=== PATIENT | male | born 1960 | race Caucasian/White ===

== ENCOUNTER 2016-11-14 16:15 | Emergency (ER) | payer OTHER ==
[~2016-11-14] VITALS: Ht 177.8 cm; Wt 77.1 kg
[2016-11-14 16:19] VITALS: BP 146/87
== END 2016-11-14 18:39 | disposition home or self-care (01) ==
LOC: ED 16:15
DX: M54.2 Cervicalgia (principal); M79.1 Myalgia; I10 Essential (primary) hypertension; G89.29 Other chronic pain; Z88.1 Allergy status to other antibiotic agents; Z88.8 Allergy status to other drugs, medicaments and biological substances; V49.9XXA Car occupant (driver) (passenger) injured in unspecified traffic accident, initial encounter; Y93.89 Activity, other specified; Y99.8 Other external cause status; Y92.89 Other specified places as the place of occurrence of the external cause

== ENCOUNTER 2017-01-19 20:20 | Emergency (ER) | payer OTHER ==
[2017-01-19 21:44] VITALS: BP 133/80
== END 2017-01-19 21:44 | disposition home or self-care (01) ==
LOC: ED 20:20
DX: G89.29 Other chronic pain (principal); M54.5 Low back pain; I10 Essential (primary) hypertension; Z88.1 Allergy status to other antibiotic agents; Z88.8 Allergy status to other drugs, medicaments and biological substances

== ENCOUNTER 2019-04-13 14:58 | Emergency (ER) | payer OTHER ==
[~2019-04-13] VITALS: Ht 177.8 cm; Wt 82.1 kg
[2019-04-13 15:11] VITALS: Ht 177.8 cm; Wt 82.1 kg
[2019-04-13 18:36] VITALS: BP 140/71
== END 2019-04-13 18:36 | disposition home or self-care (01) ==
LOC: ED 14:58
DX: M25.552 Pain in left hip (principal); I10 Essential (primary) hypertension; G89.29 Other chronic pain; M54.9 Dorsalgia, unspecified; Z88.1 Allergy status to other antibiotic agents; Z88.6 Allergy status to analgesic agent